=== PATIENT | male | born 1955 | race Caucasian/White ===

== ENCOUNTER 2023-01-16 14:42 | Outpatient (CLI) | payer MEDICARE, SELFPAY ==
[2023-01-16 15:21] LABS: Erythrocyte Sedimentation Rate 2 mm/hr (0-10)
[2023-01-16 15:40] LABS: Alanine Aminotransferase 19 U/L (0-41); Albumin Level 4.7 g/dL (3.5-5.2); Alkaline Phosphatase 105 U/L (40-130); Anion Gap 13.7 (5-19); Aspartate Amino Transferase 18 U/L (0-40); Blood Urea Nitrogen 13 mg/dL (8-23); Calcium 9.7 mg/dL (8.5-10.5); Carbon Dioxide 28 mmol/L (22-29); Chloride 100 mmol/L (98-107); Globulin 2.4 g/dL (1.3-4.6); Glomerular Filtration Rate 60.2 mL/min (90-130); Glucose 108 mg/dL (65-115); Osmolality Calculated 285 mOsm/kg (285-295); Potassium 4.7 mmol/L (3.5-5.1); Sodium 137 mmol/L (136-145); Total Bilirubin 0.6 mg/dL (0.15-1.2); Total Protein 7.1 g/dL (6.6-8.7)
[2023-01-18 15:28] LABS: SCL 70 <1.0 NEG AI (<1.0 NEG); SS A Ro Sjogrens Antibody <1.0 NEG AI (<1.0 NEG); SS-B/LA IGG <1.0 NEG AI (<1.0 NEG)
[2023-01-18 15:40] LABS: Anti-Nuclear Antibody Screen NEGATIVE (NEGATIVE)
[2023-01-19 14:20] LABS: Cyclic Citrullinated Peptide <16 UNITS
[2023-01-26 17:25] LABS: Acetylcholine Receptor Binding <0.30 nmol/L
[2023-02-27 14:17] LABS: SM/RNP Antibodies <1.0 NEG
== END 2023-01-16 14:43 | disposition home or self-care (01) ==
PROVIDERS: PCP Family Medicine; Visit Provider Family Medicine
DX: G70.80 Lambert-Eaton syndrome, unspecified (principal)
CPT/HCPCS: 36415; 80053; 83519; 85651; 86038; 86140; 86200; 86235; 86431

== ENCOUNTER 2023-01-30 11:08 | Outpatient (CLI) | payer MEDICARE, SELFPAY ==
[2023-01-30 12:03] LABS: Basophils % 0.8 %; Eosinophils % 1.1 %; Hematocrit 37.2 % (37-53); Lymphocytes # 1.5 10^3/uL (0.8-4.8); Lymphocytes % 42.1 %; Mean Corpuscular HGB Conc 32.8 g/dL (30-55); Mean Corpuscular Hemoglobin 27.6 pg (27-33); Mean Corpuscular Volume 84.2 fl (82-101); Mean Platelet Volume 10.4 fL (7.4-10.4); Monocytes # 0.3 10^3/uL (0.2-0.9); Monocytes % 7.9 %; Neutrophils # 1.71 10^3/uL (1.8-7.7); Neutrophils % 48.1 %; Nucleated Red Blood Cells % 0 %; Platelet Count 215 10^3/cmm (157-399); Red Blood Count 4.42 10^6/uL (3.85-5.65); Red Cell Distribution Width 13.8 % (12.1-15.1); White Blood Count 3.56 10^3/uL (3.29-11.43)
[2023-01-30 12:29] LABS: Thyroid Stimulating Hormone 3.44 uIU/mL (0.27-4.20)
[2023-02-27 14:03] LABS: SM/RNP Antibodies <1.0 NEG
== END 2023-01-30 11:09 | disposition home or self-care (01) ==
PROVIDERS: PCP Family Medicine; Visit Provider Family Medicine
DX: G25.2 Other specified forms of tremor (principal)
CPT/HCPCS: 36415; 84439; 84443; 85025; 86235

== ENCOUNTER 2023-02-21 13:21 | Outpatient (CLI) | payer MEDICARE, SELFPAY ==
--- NOTE | 2023-02-21 13:30 | CT_ITS ---
WS: [id number] CT HEAD TECHNIQUE: Noncontrast CT of the head obtained from the skullbase to the vertex. CLINICAL INFORMATION: movement disorder, COMPARISON: None. DLP: 1058.[address] scans at [facility] use at least one of these dose optimization techniques: automated e xposure control; mA and/or kV adjustment per patient size (includes targeted exams where dose is matc hed to clinical indication); or iterative reconstruction. FINDINGS: No evidence of intracranial hemorrhage or mass effect. Ventricular system and basal cisterns are alvarado nt. Mild small vessel changes with moderate parenchymal volume loss. No extra-axial fluid collections . No evidence of mass or mass effect. Vascular calcification. Paranasal sinuses and mastoid air cells are well aerated. .Normal visualized soft tissues. IMPRESSION: 1. No evidence of intracranial hemorrhage or mass effect. 2. Mild small vessel changes with moderate parenchymal volume loss. 3. Vascular calcification. 4. No acute intracranial findings.
== END 2023-02-21 13:22 | disposition home or self-care (01) ==
LOC: RAD 13:21
PROVIDERS: PCP Family Medicine; Visit Provider Family Medicine
DX: G25.9 Extrapyramidal and movement disorder, unspecified (principal); G93.89 Other specified disorders of brain
CPT/HCPCS: 70450

== ENCOUNTER → 2023-03-22 07:28 | Outpatient (BNVA) | payer MEDICARE, SELFPAY | PROVIDERS: PCP Family Medicine; Visit Provider Psychiatry & Neurology Neurology | DX: G20.C Parkinsonism, unspecified (principal); R13.10 Dysphagia, unspecified; R29.818 Other symptoms and signs involving the nervous system; M54.2 Cervicalgia; M75.00 Adhesive capsulitis of unspecified shoulder; M25.511 Pain in right shoulder | CPT/HCPCS: 73030; 99203 ==

== ENCOUNTER 2023-04-10 12:56 | Outpatient (CLI) | payer MEDICARE, SELFPAY ==
--- NOTE | 2023-04-10 13:00 | MR_ITS ---
WS: [id number] MRI CERVICAL SPINE NONCONTRAST TECHNIQUE: Sagittal T1, T2 and STIR imaging. Axial T2, gradient, and fiesta imaging. CLINICAL INFORMATION: R29.818 - Other symptoms and signs involving the nervous ... COMPARISON: None. FINDINGS: Mild cervical curve. Straightening of the normal cervical lordosis. Cord signal is normal. Disc osteo phyte complexes worse at C4-C5 and C5-C6. Slight anterolisthesis C7 on T1. C2-C3: Mild facet arthropathy. Spinal canal and foramen are patent. C3-C4: Disc osteophyte complex with endplate ridging. Mild central canal stenosis. Moderate facet art hropathy. Moderate to severe RIGHT and moderate LEFT bony foraminal narrowing. C4-C5: Disc osteophyte complex with endplate ridging. Slight indentation of the cervical cord with mi ld central canal stenosis. Moderate to severe LEFT and mild RIGHT bony foraminal narrowing. Moderate facet arthropathy. C5-C6: Central and RIGHT paracentral disc osteophyte protrusion with slight indentation of the cervic al cord. Mild central canal stenosis. Moderate RIGHT and mild LEFT foraminal narrowing. C6-C7: Disc osteophyte complex with endplate ridging. Severe LEFT bony foraminal narrowing. Mild RIGH T bony foraminal narrowing. Spinal canal is patent. C7-T1: Slight anterolisthesis C7 on T1. Mild to moderate LEFT and no significant RIGHT bony foraminal narrowing. Spinal canal is patent. Visualized brain stem structures: Normal. Prevertebral soft tissues: Normal. IMPRESSION: 1. Straightening of the normal cervical lordosis. Cord signal is normal. 2. Multilevel moderate to severe bony foraminal narrowing worse at RIGHT C3-C4, LEFT C4-C5, RIGHT C5 -C6, and LEFT C6-C7. 3. Mild central canal stenosis C3-C4 C4-C5 and C5-C6 with disc osteophyte complexes and slight inden tation on the cervical cord.
--- NOTE | 2023-04-10 13:45 | MR_ITS ---
WS: [id number] MRI HEAD WITH CONTRAST TECHNIQUE: Sagittal T1, T2 axial, T2 axial FLAIR, axial susceptibility weighted imaging, axial diffus ion weighted images, and coronal T2 images were obtained. Pre and post-T1 axial and post T1 coronal i mages. ADC and FSPGR images. CLINICAL INFORMATION: R29.818 - Other symptoms and signs involving the nervous ... COMPARISON: CT head 02/21/2023 FINDINGS: No evidence of restricted diffusion to suggest acute ischemia. Ventricular system and basal cisterns are patent. Normal posterior fossa. Normal vascular flow voids at the skull base. No extra-axial flui d collections. No evidence of mass or mass effect. Paranasal sinuses and mastoid air cells are well a erated. Normal optic chiasm and pituitary infundibulum. Mild to moderate symmetric atrophy temporal l obes and hippocampal formations. No abnormal gadolinium enhancement. Normal dural venous sinuses. IMPRESSION: 1. No evidence of restricted diffusion to suggest acute ischemia. 2. Mild small vessel changes with moderate parenchymal volume loss worse in the frontal lobes. 3. No hemosiderin on susceptibility-weighted images. 4. Mild to moderate symmetric atrophy temporal lobes and hippocampal formations. 5. No abnormal gadolinium enhancement.
[2023-04-10] MEDS: gadobenate dimeglumine 20 mL vial IV (14:06)
== END 2023-04-10 12:57 | disposition home or self-care (01) ==
LOC: RAD 12:56
PROVIDERS: PCP Family Medicine; Visit Provider Psychiatry & Neurology Neurology
DX: R29.818 Other symptoms and signs involving the nervous system (principal); M54.2 Cervicalgia; M48.02 Spinal stenosis, cervical region; M25.78 Osteophyte, vertebrae
CPT/HCPCS: 70553; 72141; A9577

== ENCOUNTER → 2023-06-28 10:58 | Outpatient (BNVA) | payer MEDICARE, SELFPAY | PROVIDERS: PCP Family Medicine; Visit Provider Psychiatry & Neurology Neurology | DX: G20.C Parkinsonism, unspecified (principal); R13.10 Dysphagia, unspecified; M25.511 Pain in right shoulder; M54.2 Cervicalgia | CPT/HCPCS: 99212 ==

== ENCOUNTER → 2023-08-09 11:45 | Outpatient (BNVA) | payer MEDICARE, SELFPAY | PROVIDERS: PCP Family Medicine; Visit Provider Psychiatry & Neurology Neurology | DX: G20.C Parkinsonism, unspecified (principal); M25.511 Pain in right shoulder; M54.2 Cervicalgia; R13.10 Dysphagia, unspecified | CPT/HCPCS: 99212 ==

== ENCOUNTER → 2023-10-30 12:53 | Outpatient (BNVA) | payer MEDICARE, SELFPAY | PROVIDERS: PCP Family Medicine; Visit Provider Psychiatry & Neurology Neurology | DX: G20.C Parkinsonism, unspecified (principal); M25.511 Pain in right shoulder; M54.2 Cervicalgia; R13.10 Dysphagia, unspecified | CPT/HCPCS: 99212 ==

== ENCOUNTER → 2024-04-29 13:00 | Outpatient (BNVA) | payer MEDICARE, SELFPAY | PROVIDERS: PCP Family Medicine; Visit Provider Psychiatry & Neurology Neurology | DX: G20.C Parkinsonism, unspecified (principal); I10 Essential (primary) hypertension; M25.511 Pain in right shoulder; M54.2 Cervicalgia; R13.10 Dysphagia, unspecified | CPT/HCPCS: 99212 ==